=== PATIENT | female | born 1975 | race Caucasian/White ===

== ENCOUNTER 2018-12-06 05:30 | Emergency (ER) | payer OTHER ==
[~2018-12-06] VITALS: Ht 157.5 cm; Wt 101.2 kg
[2018-12-06 05:34] VITALS: Ht 157.5 cm; Wt 101.2 kg
[2018-12-06 07:05] VITALS: BP 107/59
== END 2018-12-06 07:05 | disposition home or self-care (01) ==
LOC: ED 05:30
DX: N39.0 Urinary tract infection, site not specified (principal); M54.6 Pain in thoracic spine; Z88.6 Allergy status to analgesic agent; Z88.5 Allergy status to narcotic agent
CPT/HCPCS: J1885